=== PATIENT | female | born 1975 | race Caucasian/White ===

== ENCOUNTER 2017-01-08 14:03 | Emergency (ER) | payer SELFPAY ==
[~2017-01-08] VITALS: Ht 144.8 cm; Wt 90.9 kg
[~2017-01-08 14:03] MED LIST: AMOXICILLIN 50500 MG PO; BCP TD; CELEXA20 MG PO; CELEXA40 MG PO; CEPHALEXIN500 M1 PO; CLARITIN 1010 MG/TAB PO; CLEOCIN HCL300 MG PO; Cholesterol Med; DEPAKOTE ER 25250 MG PO; FLEXERIL10 MG PO; HCTZ12.5TAB PO; LIDOCAINE TP; LORTAB 5/500 501 TAB PO; LYRICA; LYRICA 25MG CAP25 MG PO; LYRICA 50MG CAP50 MG PO; METFORMIN HCL500 M1 PO; NAPROSYN500 MG PO; NEURONTIN600 MG/TAB PO; NORCO 325 MG-51 TAB PO; NORCO 325 MG-7.1 TAB PO; PEN-VEE K500 MG PO; PERCOCET 325 MG1 TA2 PO; PERCR 7.5 PO; PHENERGAN 25 TA25 MG PO; PRAVACHOL10 MG PO; PREDNISONE20 MG PO; SAVELLA50 MG PO; SYNTHROID0.05 MG/TA PO; VALTREX500 MG PO; WATER PILL; ZITHROMAX 250M250 MG PO
[2017-01-08 14:07] VITALS: TEMP 98
[2017-01-08] MEDS ORDERED: NORCO 325 MG-51 TAB PO (17:23)
[2017-01-08 20:12] LABS: CALCIUM 8.6 mg/dL (8.4-10.2); CREATININE, serum 0.79 mg/dL (0.52-1.25)
[2017-01-08 20:14] LABS: POTASSIUM 2.9 mmol/L (3.4-5.0)
[2017-01-08 21:41] VITALS: BP 119/63; PULSE 76
[2017-01-08 22:12] LABS: PH 5 (5-8); URINE APPEARANCE Cloudy; URINE BACTERIA Occasional /hpf; URINE BILIRUBIN Negative (NEGATIVE); URINE BLOOD Negative (NEGATIVE); URINE COLOR Yellow; URINE GLUCOSE Negative (NEGATIVE); URINE KETONE Negative (NEGATIVE); URINE RBC 0-2 /hpf
== END 2017-01-08 21:44 | disposition home or self-care (01) ==
LOC: COL.ER 14:03
PROVIDERS: Nurse Practitioner
DX: M54.5 Low back pain (principal); M53.3 Sacrococcygeal disorders, not elsewhere classified; E87.6 Hypokalemia
CPT/HCPCS: J1885; J2360; J3480; J7030

== ENCOUNTER → 2017-01-14 | Outpatient (CLI) | payer OTHER | LOC: ZLAB.FHCC 11:48 | DX: Z01.89 Encounter for other specified special examinations (principal) ==

== ENCOUNTER → 2017-09-04 | Outpatient (REF) | LOC: ZLAB.WCH 06:47 | DX: Z01.89 Encounter for other specified special examinations (principal) ==